=== PATIENT | female | born 1990 | race Two or more races ===

== ENCOUNTER 2017-07-29 08:45 | Observation (INO) | payer SELFPAY ==
[2017-07-29] MEDS ORDERED: IV RINGERS,LACTATED 1000ML 1,000 ML IV (09:27)
[2017-07-29 10:32] LABS: BILIRUBIN,URINE NEGATIVE (NEG); CLARITY,URINE CLEAR; COLOR,URINE YELLOW; GLUCOSE,URINE NEGATIVE (NEG); NITRITE,URINE NEGATIVE (NEG); PROTEIN,URINE NEGATIVE (NEG-TRACE); RBC,URINE 0 /HPF (0-2); SQUAMOUS EPITHELIAL CELL,UR MANY /LPF; UROBILINOGEN,URINE 0.2 mg/dL (0.2 mg/dL)
[2017-07-29 10:33] LABS: BACTERIA,URINE MODERATE /HPF (0-FEW)
[2017-07-29] MEDS: hydrOXYzine PAMOATE 25 MG CAPSULE PO (11:07)
== END 2017-07-29 17:37 | disposition home or self-care (01) ==
LOC: 3 SO LND 08:45
DX: O26.892 Other specified pregnancy related conditions, second trimester (principal); R10.9 Unspecified abdominal pain; Z3A.21 21 weeks gestation of pregnancy
CPT/HCPCS: 81001; 87086; G0378; G0379; Q0177

== ENCOUNTER 2020-08-04 10:08 | Emergency (ER) | payer SELFPAY ==
[~2020-08-04] VITALS: Ht 162.6 cm; Wt 70.4 kg
[2020-08-04 10:50] VITALS: BP 119/76
[2020-08-04] MEDS: DEXAMETHASONE SOD PHOS 20 MG/5 ML VIAL. PO ONE (10:52)
[2020-08-04] MEDS ORDERED: CETI10TA16 PO (10:57)
[2020-08-04] MEDS ORDERED: OLOP5DRO13 EACHEYE (10:57)
[2020-08-04] MEDS ORDERED: FLUT9.9S NS (10:57)
--- NOTE | 2020-08-04 10:58 | ED.ADGEN ---
Past Medical History Past Medical History: No Pertinent History Past Surgical History: No Surgical History Smoking Status: Never Smoker Alcohol Use: None General Adult EDM: Chief Complaint: SORE THROAT HPI: HPI: Patient is a 30 year old female, accompanied by a friend, who presents emergency department with complaints of right eye redness, sneezing, sore throat, and frequent dry cough for that has really increased over the last 2 days. Patient reports that both her eyes have been really itchy right eye is worse than the left, she reports that they have been constantly tearing. She denies any purulent drainage from her eyes or crusting of her eyelids. She denies any vision changes, headache, sinus pressure, ear pain, fever, rash, body aches, fatigue, chest pain, palpitations, shortness of breath, nausea, vomiting, diarrhea, or abdominal pain. Patient denies any pain with urination, hematuria, or increased urinary frequency. She denies any medical or surgical history. Patient denies any known exposure to COVID-19. Patient states she tried taking some [id number] allergy medication but her symptoms persisted. She currently denies any pain. Review of Systems: Review of Systems: Complete ROS is negative unless otherwise noted in HPI. Allergies: Allergies: Allergies Coded Allergies Type Severity Reaction Last Updated Verified No Known Drug Allergies 07/29/17 No Physical Exam: PE: See Above Constitutional: Well developed, well nourished, no acute distress, HENT: Normocephalic, atraumatic, bilateral external ears normal, bilateral TMs normal, cobblestone appearance of posterior pharynx, 2+ tonsils bilat without erythema or exudate, oropharynx moist, nose congested with erythema and edema of the nasal turbinates bilaterally Eyes: PERRLA, conjunctiva injected bilaterally but worse on the right than the left, watery discharge bilat Neck: Normal range of motion, supple, non-tender, no stridor. [] Cardiovascular:Heart rate regular rhythm, no murmur [] Lungs & Thorax: Bilateral breath sounds clear to auscultation, Respirations even and unlabored, no retractions, no respiratory distress Skin: Warm, dry, no erythema, no rash. [] Back: No tenderness Extremities: No cyanosis, ROM intact Neurologic: Alert and oriented X 3, no focal deficits noted. [] Psychologic: Affect normal, judgement normal, mood normal. Current Patient Data: Vital Signs: Vital Signs Date Time Temp Pulse Resp B/P (MAP) Pulse Ox O2 Delivery O2 Flow Rate FiO2 08/04/20 10:16 98.7 84 19 135/74 (94) 98 Room Air 98.7 EKG: EKG: [] Heart Score: C/O Chest Pain: No Risk Scores: Score 0 - 3: 2.5% MACE over next 6 weeks - Discharge Home Score 4 - 6: 20.3% MACE over next 6 weeks - Admit for Clinical Observation Score 7 - 10: 72.7% MACE over next 6 weeks - Early Invasive Strategies Radiology/Procedures: Radiology/Procedures: [] Course & Med Decision Making: Course & Med Decision Making Pertinent Labs and Imaging studies reviewed. (See chart for details) 30-year-old female presents emergency department with complaints of allergy type symptoms. Physical exam is not concerning for strep pharyngitis, or mononucleosis. Patient denies any exposure to COVID-19. Patient was given 10 mg Decadron p.o. in the emergency department, prescriptions written for Zyrtec, Patanol eyedrops, and Flonase nasal spray. Encourage patient to follow-up with primary care doctor at the beginning of next week if symptoms persisted, return to the ER symptoms worsen or fever develop. Patient verbalized an understanding of home care, medications, follow-up, and return to ED instructions and was in agreement with the plan of care. [] Dragon Disclaimer: Dragon Disclaimer: This electronic medical record was generated, in whole or in part, using a voice recognition dictation system. Departure Departure Impression: Primary Impression: Allergic conjunctivitis and rhinitis Disposition: 01 HOME / SELF CARE / HOMELESS Condition: STABLE Referrals: NO PCP (PCP) Patient Instructions: Allergic Conjunctivitis, [id number], Allergic Rhinitis Additional Instructions: Fill the prescription(s) and use as directed. You may take Tylenol or ibuprofen as needed for pain/fever. Increase clear fluids. Avoid triggers such as smoke, fragrance, dust, and pollen. You may take OTC cough suppressants as needed. Follow-up with your primary care doctor if symptoms persist, return to the ER if symptoms worsen. [facility] [address] [id number] [place] [address] [facility] [address] [place] [address] [facility] [address] [place] [address] [facility] [address] [place] [address] [facility] [address] [place] [address] [facility] [address] [place] [address] [facility] [address] [place] [address] [facility] [address] [place] [address] [facility] [address] [place] [address] Scripts Olopatadine HCl (Olopatadine HCl) 5 Ml Drops 1 DROP EACHEYE BID for 30 Days, #5 ML 1 Refill Prov: SUSANA CARPIO APRN 08/04/20 Fluticasone Propionate (Flonase Allergy Relief) 9.9 Ml Sandy.susp 2 SPRAYS NS DAILY for 30 Days, #1 BOTTLE 1 Refill Prov: SUSANA CARPIO APRN 08/04/20 Cetirizine Hcl (CETIRIZINE HCL) 10 Mg Tablet 1 TAB PO HS for 30 Days, #30 TAB 1 Refill Prov: SUSANA CARPIO APRN 08/04/20 Problem Qualifiers Primary Impression: Allergic conjunctivitis and rhinitis Laterality: bilateral Qualified Codes: H10.13 - Acute atopic conjunctivitis, bilateral; J30.9 - Allergic rhinitis, unspecified SUSANA CARPIO APRN Aug 04, 2020 10:58
== END 2020-08-04 11:08 | disposition home or self-care (01) ==
LOC: ER 10:08
DX: H10.13 Acute atopic conjunctivitis, bilateral (principal); R06.2 Wheezing; R05 Cough
CPT/HCPCS: 99283; J1100